=== PATIENT | female | born 1970 | race Caucasian/White ===

== ENCOUNTER 2017-12-22 18:40 | Emergency (ER) | payer OTHER ==
[~2017-12-22] VITALS: Ht 177.8 cm; Wt 61.2 kg
[2017-12-22] MEDS ORDERED: APAP650 PO (18:54)
[2017-12-22] MEDS ORDERED: ASPIR 8181 MG PO (18:54)
[2017-12-22] MEDS ORDERED: SINUS 12 HOUR120 MG PO (18:54)
[2017-12-22] MEDS ORDERED: ZPAK PO (19:31)
[2017-12-22] MEDS ORDERED: PREDNISONE50 MG PO (19:31)
[2017-12-22] MEDS ORDERED: VENTOLIN HFA 1818 GM INH (19:31)
[2017-12-22] MEDS ORDERED: ROBITUSSIN100 MG/53 PO (19:31)
[2017-12-22 19:56] VITALS: BP 110/80
== END 2017-12-22 19:57 | disposition home or self-care (01) ==
LOC: M.ERS 18:40
DX: J18.9 Pneumonia, unspecified organism (principal); H92.02 Otalgia, left ear; J44.9 Chronic obstructive pulmonary disease, unspecified; F17.200 Nicotine dependence, unspecified, uncomplicated

== ENCOUNTER 2017-12-24 13:41 | Emergency (ER) | payer OTHER ==
[~2017-12-24] VITALS: Ht 177.8 cm; Wt 61.2 kg
[~2017-12-24 13:41] MED LIST: APAP650 PO; ASPIR 8181 MG PO; PREDNISONE50 MG PO; ROBITUSSIN100 MG/53 PO; SINUS 12 HOUR120 MG PO; VENTOLIN HFA 1818 GM INH; ZPAK PO
[2017-12-24] MEDS ORDERED: TYLENOL EXTRA500 MG PO (14:11)
[2017-12-24] MEDS ORDERED: IBUPROFEN 600600 M1 PO (14:11)
[2017-12-24 14:25] VITALS: BP 135/78
== END 2017-12-24 14:28 | disposition home or self-care (01) ==
LOC: M.ERS 13:41
DX: H66.92 Otitis media, unspecified, left ear (principal)